=== PATIENT | female | born 1955 | race African-American/Black ===

== ENCOUNTER 2021-12-01 15:08 | Emergency (ER) | payer OTHER, BC ==
[2021-12-01 15:22] VITALS: TEMP 98.9; BMI 26.6
[2021-12-01] MEDS ORDERED: DEXAMETHASONE SOD PHOSPHATE 10 MG/1 ML VIAL IM ONE (16:19)
[2021-12-01] MEDS: ALBUTEROL SO4 2.5/IPRATROPIUM 0.5 INH SOL 3 ML VIAL.NEB. NEB SCH ×3 (17:07→17:16)
[2021-12-01 17:57] VITALS: BP 126/81; PULSE 73
== END 2021-12-01 19:22 | disposition home or self-care (01) ==
LOC: JER 15:08
PROC: 3E023GC Introduction of Other Therapeutic Substance into Muscle, Percutaneous Approach (ICD-10-PCS; principal; 2021-12-01)
PROC: 3E0F7GC Introduction of Other Therapeutic Substance into Respiratory Tract, Via Natural or Artificial Opening (ICD-10-PCS; 2021-12-01)
DX: J45.909 Unspecified asthma, uncomplicated (principal)
CPT/HCPCS: 71046-TC-FY; 99285-25; J1100

== ENCOUNTER 2022-04-19 12:35 | Emergency (ER) | payer OTHER, BC ==
[2022-04-19 13:16] VITALS: BP 145/88; PULSE 62; RESP 18; TEMP 98; BMI 26.6
== END 2022-04-19 15:15 | disposition left against medical advice (07) ==
LOC: JERFT 12:35
DX: N76.89 Other specified inflammation of vagina and vulva (principal)
CPT/HCPCS: 99281-25

== ENCOUNTER 2024-08-17 10:45 | Emergency (ER) | payer BC, OTHER ==
[2024-08-17 11:02] VITALS: TEMP 97.6; BMI 26.6
[2024-08-17 12:20] LABS: BASO % 0.6 % (0-2.0); EOS % 3.7 % (0-4.5); HEMATOCRIT 46.1 % (32.4-45.2); HEMOGLOBIN 15.4 GM/dL (10.7-15.3); MCH 33.5 pg (25.7-33.7); MCHC 33.5 g/dl (32.0-36.0); MEAN PLT VOLUME 6.1 fl (7.5-11.1); MONO % 8.2 % (3.8-10.2); NEUT % 52.5 % (42.8-82.8); PLATELET COUNT 221 10^3/uL (134-434); RBC 4.61 M/mm3 (3.60-5.2); RDW 13.7 % (11.6-15.6); WHITE BLOOD COUNT 4.5 K/mm3 (4.0-10.0)
[2024-08-17 12:27] LABS: INR 0.9 (0.83-1.09); PROTHROMBIN TIME (PATIENT) 10.2 SEC (9.7-13.0)
[2024-08-17 12:30] LABS: ACTIVATED PTT 30.4 SECONDS (25.2-36.5)
[2024-08-17 12:38] LABS: POTASSIUM 4.5 mmol/L (3.5-5.1)
[2024-08-17] MEDS ORDERED: ACETAMINOPHEN INJECTION 100 ML ONE (12:38)
[2024-08-17 12:40] LABS: CALCIUM 9.6 mg/dL (8.5-10.1)
[2024-08-17 12:41] LABS: ALBUMIN 3.8 g/dl (3.4-5.0); BLOOD UREA NITROGEN 21.9 mg/dL (7-18); MAGNESIUM 2.4 mg/dL (1.8-2.4)
[2024-08-17 12:44] LABS: CREATININE 1.7 mg/dL (0.55-1.3)
[2024-08-17 12:45] LABS: BILIRUBIN,TOTAL 0.2 mg/dL (0.2-1)
[2024-08-17] MEDS: ACETAMINOPHEN 1000 MG/100 ML BAG IVPB ONE (12:45)
[2024-08-17 12:49] LABS: N-TERMINAL BNP 107.6 pg/ml (5-125)
[2024-08-17 13:39] LABS: HIV INTERPRETATION NEGATIVE (NEGATIVE)
[2024-08-17] MEDS ORDERED: ASPIRIN 81 MG CHEWABLE TABLETS ONE (15:10)
[2024-08-17] MEDS: ASPIRIN 81 MG CHEWABLE TABLETS PO ONE (15:15)
[2024-08-17 16:29] VITALS: BP 149/78; PULSE 60; RESP 16
== END 2024-08-17 16:29 | disposition home or self-care (01) ==
LOC: JER 10:45
PROC: 3E033NZ Introduction of Analgesics, Hypnotics, Sedatives into Peripheral Vein, Percutaneous Approach (ICD-10-PCS; principal; 2024-08-17)
DX: M25.511 Pain in right shoulder (principal); Z20.822 Contact with and (suspected) exposure to COVID-19
CPT/HCPCS: 0241U-QW; 36415; 71045-TC-FY; 80053; 83735; 83880; 84484; 85025; 85610; 85730; 86803; 87389; 87522; 93005; 93010; 99285-25; J0131

== ENCOUNTER 2024-10-04 16:48 | Observation (INO) | payer OTHER ==
[2024-10-04 17:05] VITALS: BMI 27.4
[2024-10-04] MEDS ORDERED: ALBUTEROL SO4 2.5/IPRATROPIUM 0.5 INH SOL 3 ML VIAL.NEB. NEB PRN (17:44)
[2024-10-04 17:52] LABS: HEMATOCRIT 41.2 % (32.4-45.2); MCH 33.9 pg (25.7-33.7); MCHC 34.1 g/dl (32.0-36.0); MEAN CELL VOLUME 99.5 fl (80-96); MEAN PLT VOLUME 6.8 fl (7.5-11.1); PLATELET COUNT 170 10^3/uL (134-434); RBC 4.14 M/mm3 (3.60-5.2); RDW 14.2 % (11.6-15.6); WHITE BLOOD COUNT 6.4 K/mm3 (4.0-10.0)
[2024-10-04 18:18] LABS: POTASSIUM 5.5 mmol/L (3.5-5.1)
[2024-10-04 18:20] LABS: CALCIUM 9.1 mg/dL (8.5-10.1)
[2024-10-04 18:21] LABS: ALBUMIN 3.6 g/dl (3.4-5.0); BLOOD UREA NITROGEN 28.4 mg/dL (7-18)
[2024-10-04 18:24] LABS: CREATININE 1.8 mg/dL (0.55-1.3)
[2024-10-04 18:25] LABS: BILIRUBIN,TOTAL 0.6 mg/dL (0.2-1)
[2024-10-04 19:20] LABS: POTASSIUM 4.9 mmol/L (3.5-5.1)
[2024-10-04 19:25] LABS: CREATININE 1.7 mg/dL (0.55-1.3)
[2024-10-04] MEDS ORDERED: ALBUTEROL SO4 2.5/IPRATROPIUM 0.5 INH SOL 3 ML VIAL.NEB. NEB ONE (19:55)
[2024-10-04] MEDS: ALBUTEROL SO4 2.5/IPRATROPIUM 0.5 INH SOL 3 ML VIAL.NEB. NEB ONE ×2 (19:57)
[2024-10-05] MEDS: methylPREDNISolone NA SUCC 40 MG/1 ML VIAL IVPUSH SCH ×3 (00:40→16:26)
[2024-10-05] MEDS: OSELTAMIVIR PHOSPHATE 30 MG CAPSULE PO SCH (00:40)
[2024-10-05] MEDS ORDERED: CycloBENZAprine HCL 5 MG TABLET PO PRN ×2 (03:05→16:14)
[2024-10-05] MEDS: HEPARIN NA (PORCINE) 5,000 UNITS/ML 1ML VIAL SQ SCH (05:28)
[2024-10-05] MEDS: INSULIN ASPART SLIDING SCALE (NOVOLOG) 1 VIAL SQ SCH (06:00)
[2024-10-05] MEDS: INSULIN (LEVEMIR) 100 UNITS/ML UNITS SQ SCH (06:00)
[2024-10-05] MEDS ORDERED: PATIENT'S OWN MEDICATION (NON-FORMULARY) (Gabapentin [Gabapentin] 600 MG Tablet) PO SCH (06:00)
[2024-10-05] MEDS: PANTOPRAZOLE 40 MG TABLET PO SCH (06:01)
[2024-10-05] MEDS: ALBUTEROL SO4 2.5/IPRATROPIUM 0.5 INH SOL 3 ML VIAL.NEB. NEB SCH (07:20)
[2024-10-05] MEDS: LOSARTAN POTASSIUM 50 MG TABLET PO SCH (09:35)
[2024-10-05] MEDS: ASPIRIN COATED 81 MG TABLET.EC PO SCH (09:36)
[2024-10-05] MEDS: DULoxetine HCL 30 MG CAPSULE.DR PO SCH (09:36)
[2024-10-05] MEDS: ISOSORBIDE MONONITRATE 60 MG TAB.SR.24H (FP) PO SCH (09:36)
[2024-10-05] MEDS: amLODIPine BESYLATE 10 MG TABLET (FP) PO SCH (09:36)
[2024-10-05] MEDS: EZETIMIBE 10 MG TABLET (FP) PO SCH (09:36)
[2024-10-05] MEDS: CLOPIDOGREL BISULFATE 75 MG TABLET (FP) PO SCH (09:36)
[2024-10-05 09:39] LABS: HEMATOCRIT 42.6 % (32.4-45.2); HEMOGLOBIN 14.5 GM/dL (10.7-15.3); MCH 33.6 pg (25.7-33.7); MCHC 34.1 g/dl (32.0-36.0); MEAN CELL VOLUME 98.3 fl (80-96); MEAN PLT VOLUME 6.8 fl (7.5-11.1); PLATELET COUNT 185 10^3/uL (134-434); RBC 4.33 M/mm3 (3.60-5.2); RDW 14.6 % (11.6-15.6); WHITE BLOOD COUNT 5.7 K/mm3 (4.0-10.0)
[2024-10-05 09:58] LABS: POTASSIUM 4.2 mmol/L (3.5-5.1)
[2024-10-05 10:04] LABS: ALBUMIN 3.7 g/dl (3.4-5.0); BLOOD UREA NITROGEN 25.4 mg/dL (7-18); CALCIUM 9.9 mg/dL (8.5-10.1)
[2024-10-05 10:07] LABS: CREATININE 1.3 mg/dL (0.55-1.3)
[2024-10-05 10:09] LABS: BILIRUBIN,TOTAL 0.5 mg/dL (0.2-1)
[2024-10-05] MEDS ORDERED: ACETAMINOPHEN 325 MG TABLET (FP) PO PRN (17:10)
[2024-10-05] MEDS: ACETAMINOPHEN 325 MG TABLET (FP) PO ONE (17:23)
[2024-10-05] MEDS ORDERED: ALBUTEROL SO4 0.083% IH SOL 2.5 MG/3 ML VIAL.NEB. NEB PRN (19:31)
[2024-10-05] MEDS: ROSUVASTATIN CA 20 MG TABLET PO SCH (22:09)
[2024-10-05] MEDS: BUDESONIDE/FORMETEROL FUMARATE 80/4.5 mcg INHALER IH SCH (22:12)
[2024-10-05] MEDS: GABAPENTIN 300 MG CAPSULE PO PRN (22:22)
[2024-10-06 08:10] VITALS: RESP 18
[2024-10-06 09:02] LABS: HEMATOCRIT 43.9 % (32.4-45.2); HEMOGLOBIN 14.7 GM/dL (10.7-15.3); MCH 33.3 pg (25.7-33.7); MCHC 33.6 g/dl (32.0-36.0); MEAN CELL VOLUME 99.1 fl (80-96); MEAN PLT VOLUME 6.6 fl (7.5-11.1); PLATELET COUNT 201 10^3/uL (134-434); RBC 4.42 M/mm3 (3.60-5.2); RDW 14.3 % (11.6-15.6); WHITE BLOOD COUNT 8.7 K/mm3 (4.0-10.0)
[2024-10-06 09:21] LABS: POTASSIUM 4.1 mmol/L (3.5-5.1)
[2024-10-06 09:23] LABS: CALCIUM 9.7 mg/dL (8.5-10.1)
[2024-10-06 09:26] VITALS: BP 142/83; PULSE 80; TEMP 98.4
[2024-10-06 09:26] LABS: CREATININE 1.4 mg/dL (0.55-1.3)
[2024-10-06] MEDS: ACETAMINOPHEN 325 MG TABLET (FP) PO PRN (09:30)
[2024-10-06] MEDS: NICOTINE 7 MG/24 HOURS TOPICAL PATCH TD SCH (09:30)
[2024-10-06] MEDS: EMPAGLIFLOZIN (JARDIANCE) 10 MG TABLET PO SCH (09:30)
[2024-10-06] MEDS: oxyCODONE HCL 5 MG TABLET PO PRN (09:31)
[2024-10-06] MEDS ORDERED: methylPREDNISolone NA SUCC 40 MG/1 ML VIAL IVPUSH SCH (22:00)
== END 2024-10-06 15:09 | disposition home or self-care (01) ==
LOC: JER 16:48 → INTOOBSV 20:37 → UNDOADMOB 20:37 → JERBED 20:37 → UNDOADMIN 20:41 → JERBED 23:10 → J5S 23:10
PROVIDERS: ADMIT Internal Medicine
PROC: 3E0F7GC Introduction of Other Therapeutic Substance into Respiratory Tract, Via Natural or Artificial Opening (ICD-10-PCS; principal; 2024-10-05)
PROC: 3E023GC Introduction of Other Therapeutic Substance into Muscle, Percutaneous Approach (ICD-10-PCS; 2024-10-05)
PROC: 3E013VG Introduction of Insulin into Subcutaneous Tissue, Percutaneous Approach (ICD-10-PCS; 2024-10-05)
PROC: 3E033GC Introduction of Other Therapeutic Substance into Peripheral Vein, Percutaneous Approach (ICD-10-PCS; 2024-10-05)
DX: J09.X2 Influenza due to identified novel influenza A virus with other respiratory manifestations (principal); E11.22 Type 2 diabetes mellitus with diabetic chronic kidney disease; I12.9 Hypertensive chronic kidney disease with stage 1 through stage 4 chronic kidney disease, or unspecified chronic kidney disease; N18.9 Chronic kidney disease, unspecified; J45.901 Unspecified asthma with (acute) exacerbation; J96.01 Acute respiratory failure with hypoxia; F17.210 Nicotine dependence, cigarettes, uncomplicated; E78.5 Hyperlipidemia, unspecified
CPT/HCPCS: 0241U-QW; 36415; 71046-TC-FY; 80048; 80053; 82962; 83036; 84484; 85027; 93005; 93010; 94640; 94761; 96372; 96374; 96376; 97116-GP; 97161-GP; 99285-25; G0378; J1644

== ENCOUNTER 2024-10-20 11:57 | Observation (INO) | payer OTHER ==
[2024-10-20] MEDS: ASPIRIN 81 MG CHEWABLE TABLETS PO ONE (13:03)
[2024-10-20] MEDS ORDERED: ASPIRIN 81 MG CHEWABLE TABLETS ONE (13:03)
[2024-10-20 13:11] LABS: BASO % 0.5 % (0-2.0); HEMATOCRIT 42.4 % (32.4-45.2); HEMOGLOBIN 14.1 GM/dL (10.7-15.3); MCH 33.1 pg (25.7-33.7); MCHC 33.3 g/dl (32.0-36.0); MEAN CELL VOLUME 99.3 fl (80-96); MEAN PLT VOLUME 6.3 fl (7.5-11.1); MONO % 6.9 % (3.8-10.2); NEUT % 71.6 % (42.8-82.8); PLATELET COUNT 157 10^3/uL (134-434); RBC 4.27 M/mm3 (3.60-5.2); RDW 14.5 % (11.6-15.6); WHITE BLOOD COUNT 6.4 K/mm3 (4.0-10.0)
[2024-10-20 13:35] LABS: CHLORIDE 105 mmol/L (98-107); SODIUM 138 mmol/L (136-145)
[2024-10-20 13:37] LABS: CALCIUM 8.6 mg/dL (8.5-10.1)
[2024-10-20 13:38] LABS: ALBUMIN 3.1 g/dl (3.4-5.0); BLOOD UREA NITROGEN 31.5 mg/dL (7-18); CO2 31 mmol/L (21-32); GLUCOSE,RANDOM 172 mg/dL (74-106); MAGNESIUM 2.3 mg/dL (1.8-2.4)
[2024-10-20 13:41] LABS: BILIRUBIN,TOTAL 0.8 mg/dL (0.2-1); CREATININE 1.6 mg/dL (0.55-1.3); SGOT/AST 58 U/L (15-37); SGPT/ALT 57 U/L (13-61)
[2024-10-20 13:43] LABS: ALK PHOS 74 U/L (45-117); TOT PROT 6.3 g/dl (6.4-8.2)
[2024-10-20 13:48] LABS: ANION GAP 1 mmol/L (4-13); POTASSIUM 7.8 mmol/L (3.5-5.1)
[2024-10-20 13:57] LABS: N-TERMINAL BNP 937.8 pg/ml (5-125)
[2024-10-20] MEDS: ALBUTEROL SO4 2.5/IPRATROPIUM 0.5 INH SOL 3 ML VIAL.NEB. NEB SCH (14:00)
[2024-10-20] MEDS ORDERED: ALBUTEROL SO4 2.5/IPRATROPIUM 0.5 INH SOL 3 ML VIAL.NEB. NEB ONE (14:03)
[2024-10-20 14:16] LABS: INR 0.91 (0.83-1.09); PROTHROMBIN TIME (PATIENT) 9.9 SEC (9.7-13.0)
[2024-10-20 14:19] LABS: ACTIVATED PTT 22.3 SECONDS (25.2-36.5)
[2024-10-20 14:38] LABS: POTASSIUM 4.7 mmol/L (3.5-5.1)
[2024-10-20 14:41] LABS: CALCIUM 8.5 mg/dL (8.5-10.1)
[2024-10-20 14:42] LABS: ALBUMIN 2.8 g/dl (3.4-5.0); BLOOD UREA NITROGEN 31.4 mg/dL (7-18)
[2024-10-20 14:45] LABS: CREATININE 1.5 mg/dL (0.55-1.3)
[2024-10-20 14:46] LABS: BILIRUBIN,TOTAL 0.6 mg/dL (0.2-1); TOT PROT 5.4 g/dl (6.4-8.2)
[2024-10-20] MEDS ORDERED: ALBUTEROL SO4 HFA INHALER IH PRN (20:39)
[2024-10-20] MEDS ORDERED: CycloBENZAprine HCL 5 MG TABLET PO PRN (20:39)
[2024-10-20] MEDS ORDERED: GABAPENTIN 300 MG CAPSULE ONE (21:57)
[2024-10-20] MEDS ORDERED: HEPARIN NA (PORCINE) 5,000 UNITS/ML 1ML VIAL ONE (21:57)
[2024-10-20] MEDS: GABAPENTIN 300 MG CAPSULE PO SCH (22:01)
[2024-10-20] MEDS: HEPARIN NA (PORCINE) 5,000 UNITS/ML 1ML VIAL SQ SCH (22:01)
[2024-10-21] MEDS: oxyCODONE HCL 5 MG TABLET PO PRN (01:27)
[2024-10-21] MEDS: ACETAMINOPHEN 325 MG TABLET (FP) PO PRN (01:28)
[2024-10-21 02:15] VITALS: BMI 28.0
[2024-10-21] MEDS: INSULIN ASPART SLIDING SCALE (NOVOLOG) 1 VIAL SQ SCH (06:20)
[2024-10-21] MEDS ORDERED: ALBUTEROL SO4 2.5/IPRATROPIUM 0.5 INH SOL 3 ML VIAL.NEB. NEB PRN (06:50)
[2024-10-21] MEDS: FUROSEMIDE 40 MG/4 ML INJECTABLE VIAL IVPUSH ONE (07:59)
[2024-10-21] MEDS: methylPREDNISolone NA SUCC 40 MG/1 ML VIAL IVPUSH SCH (08:02)
[2024-10-21] MEDS: ALBUTEROL SO4 2.5/IPRATROPIUM 0.5 INH SOL 3 ML VIAL.NEB. NEB SCH (08:10)
[2024-10-21 09:26] LABS: HEMATOCRIT 38.6 % (32.4-45.2); HEMOGLOBIN 12.8 GM/dL (10.7-15.3); MCH 33.1 pg (25.7-33.7); MCHC 33.1 g/dl (32.0-36.0); MEAN CELL VOLUME 100.1 fl (80-96); MEAN PLT VOLUME 6.7 fl (7.5-11.1); PLATELET COUNT 142 10^3/uL (134-434); RBC 3.85 M/mm3 (3.60-5.2); WHITE BLOOD COUNT 4.9 K/mm3 (4.0-10.0)
[2024-10-21 09:36] LABS: POTASSIUM 4.3 mmol/L (3.5-5.1)
[2024-10-21 09:48] LABS: ALBUMIN 2.7 g/dl (3.4-5.0); BLOOD UREA NITROGEN 27.4 mg/dL (7-18); CALCIUM 8.2 mg/dL (8.5-10.1); TOT PROT 5.2 g/dl (6.4-8.2)
[2024-10-21 09:50] LABS: BILIRUBIN,TOTAL 0.5 mg/dL (0.2-1)
[2024-10-21 09:52] LABS: CREATININE 1.5 mg/dL (0.55-1.3)
[2024-10-21] MEDS: amLODIPine BESYLATE 10 MG TABLET (FP) PO SCH (10:42)
[2024-10-21] MEDS: CLOPIDOGREL BISULFATE 75 MG TABLET (FP) PO SCH (10:42)
[2024-10-21] MEDS: DULoxetine HCL 30 MG CAPSULE.DR PO SCH (10:42)
[2024-10-21] MEDS: PANTOPRAZOLE 40 MG TABLET PO SCH (10:42)
[2024-10-21] MEDS: EZETIMIBE 10 MG TABLET (FP) PO SCH (10:42)
[2024-10-21] MEDS: ASPIRIN COATED 81 MG TABLET.EC PO SCH (10:42)
[2024-10-21] MEDS: ROSUVASTATIN CA 20 MG TABLET PO SCH (10:42)
[2024-10-21] MEDS: VALSARTAN 160 MG TABLET PO SCH (10:42)
[2024-10-21] MEDS: FUROSEMIDE 40 MG/4 ML INJECTABLE VIAL IVPUSH SCH (13:39)
[2024-10-21] MEDS: NICOTINE 14 MG/24 HOURS TOPICAL PATCH TD SCH (13:40)
[2024-10-22 08:05] LABS: HEMATOCRIT 41.1 % (32.4-45.2); HEMOGLOBIN 13.7 GM/dL (10.7-15.3); MCH 33.3 pg (25.7-33.7); MCHC 33.4 g/dl (32.0-36.0); MEAN CELL VOLUME 99.7 fl (80-96); MEAN PLT VOLUME 6.8 fl (7.5-11.1); PLATELET COUNT 164 10^3/uL (134-434); RBC 4.12 M/mm3 (3.60-5.2); WHITE BLOOD COUNT 10.7 K/mm3 (4.0-10.0)
[2024-10-22 08:25] LABS: POTASSIUM 4.9 mmol/L (3.5-5.1)
[2024-10-22 08:28] LABS: ALBUMIN 2.9 g/dl (3.4-5.0); BLOOD UREA NITROGEN 29.9 mg/dL (7-18); MAGNESIUM 2.2 mg/dL (1.8-2.4)
[2024-10-22 08:31] LABS: CREATININE 1.6 mg/dL (0.55-1.3)
[2024-10-22 08:34] LABS: BILIRUBIN,TOTAL 0.5 mg/dL (0.2-1)
[2024-10-22 10:27] VITALS: RESP 18
[2024-10-22 10:35] LABS: ANISOCYTOSIS 0; MACROCYTOSIS 0
[2024-10-22 16:12] VITALS: BP 146/77; PULSE 92; TEMP 98
[2024-10-23] MEDS ORDERED: FUROSEMIDE 40 MG TABLET (FP) PO SCH (10:00)
[2024-10-23] MEDS ORDERED: predniSONE 20 MG TABLET (UD) PO SCH (10:00)
== END 2024-10-22 16:44 | disposition home or self-care (01) ==
LOC: JER 11:57 → JERBED 20:07 → J4S 10-21 00:25
PROVIDERS: ADMIT Internal Medicine; ATTEND Nurse Practitioner Acute Care
PROC: 3E0F7GC Introduction of Other Therapeutic Substance into Respiratory Tract, Via Natural or Artificial Opening (ICD-10-PCS; principal; 2024-10-20)
PROC: 3E033GC Introduction of Other Therapeutic Substance into Peripheral Vein, Percutaneous Approach (ICD-10-PCS; 2024-10-20)
PROC: 3E023GC Introduction of Other Therapeutic Substance into Muscle, Percutaneous Approach (ICD-10-PCS; 2024-10-20)
DX: J44.1 Chronic obstructive pulmonary disease with (acute) exacerbation (principal); R07.89 Other chest pain; R60.0 Localized edema; Z95.0 Presence of cardiac pacemaker; I11.9 Hypertensive heart disease without heart failure; E78.5 Hyperlipidemia, unspecified; E11.9 Type 2 diabetes mellitus without complications; G89.29 Other chronic pain; M54.50 Low back pain, unspecified; Z72.0 Tobacco use
CPT/HCPCS: 36415; 71045-TC-FY; 80053; 82550; 82553; 82962; 83036; 83735; 83880; 84484; 85025; 85027; 85610; 85730; 93005; 93010; 93306-TC; 94640; 96372; 96374; 96376; 99285-25; G0378; J1644

== ENCOUNTER 2024-11-07 10:25 | Inpatient (IN) | payer OTHER ==
[2024-11-07 11:41] LABS: ABSOLUTE IMMATURE GRANULOCYTES 0.11 x10^3/uL (0.0-0.031); BASOPHILS # 0.03 x10^3/uL (0.01-0.08); EOSINOPHIL % 0.3 % (0.7-5.8); EOSINOPHILS # 0.02 x10^3/uL (0.04-0.36); HEMATOCRIT 41.2 % (34.1-44.9); HEMOGLOBIN 13.2 g/dL (11.2-15.7); MEAN CELL VOLUME 100.7 fl (79.4-94.8); MEAN PLT VOLUME 8.9 fl (9.4-12.3); MONOCYTE # 0.44 x10^3/uL (0.24-0.86); MONOCYTE % 6.8 % (4.7-12.5); PLATELET COUNT # 195 x10^3/uL (182-369); RDW 13.1 % (12.4-16.4)
[2024-11-07 11:47] LABS: EPI CELLS >36 /uL (0-25.1); HYALINE CASTS 1 /uL (0-3.1); PH,URINE 5.5 (5.0-8.0); URINE APPEARANCE CLEAR; URINE BACTERIA 397 /uL (0-1359); URINE BILIRUBIN NEGATIVE (NEGATIVE); URINE COLOR YELLOW; URINE GLUCOSE (UA) 3+ (NEGATIVE); URINE KETONE NEGATIVE (NEGATIVE); URINE LEUK ESTERASE NEGATIVE (NEGATIVE); URINE NITRITE NEGATIVE (NEGATIVE); URINE PROTEIN 2+ (NEGATIVE); URINE RBC 15 /uL (0-23.9); URINE UROBILINOGEN 0.2 mg/dL (0.2-1.0); URINE WBC 27 /uL (0-25.8)
[2024-11-07 11:59] LABS: INR 1.01 (0.83-1.09)
[2024-11-07 12:06] LABS: CHLORIDE 100 mmol/L (98-107); POTASSIUM 5.1 mmol/L (3.5-5.1); SODIUM 134 mmol/L (136-145)
[2024-11-07 12:09] LABS: ALBUMIN 2.9 g/dl (3.4-5.0); ANION GAP 7 mmol/L (4-13); CALCIUM 8.8 mg/dL (8.5-10.1); CO2 28 mmol/L (21-32)
[2024-11-07 12:10] LABS: BLOOD UREA NITROGEN 24.3 mg/dL (7-18)
[2024-11-07 12:12] LABS: SGOT/AST 19 U/L (15-37); SGPT/ALT 32 U/L (13-61)
[2024-11-07 12:13] LABS: CREATININE 2.3 mg/dL (0.55-1.3)
[2024-11-07 12:14] LABS: BILIRUBIN,TOTAL 0.3 mg/dL (0.2-1)
[2024-11-07 12:15] LABS: ALK PHOS 89 U/L (45-117)
[2024-11-07 12:16] LABS: GLUCOSE,RANDOM 528 mg/dL (74-106)
[2024-11-07] MEDS: SODIUM CHLORIDE 0.9% 500 ML INFUS.BAG IV ONE (13:45)
[2024-11-07] MEDS ORDERED: INSULIN REGULAR HUMAN 100 UNITS/ML *VIAL ONE (14:43)
[2024-11-07] MEDS: INSULIN REGULAR HUMAN 100 UNITS/ML *VIAL IVPUSH ONE (14:50)
[2024-11-07] MEDS ORDERED: INSULIN ASPART SLIDING SCALE (NOVOLOG) 1 VIAL SQ SCH (16:30)
[2024-11-07] MEDS ORDERED: AZITHROMYCIN 250 MG TABLET PO SCH (17:15)
[2024-11-07] MEDS: SODIUM CHLORIDE 1,000 ML IV SCH (17:55)
[2024-11-07] MEDS: CEFTRIAXONE 1 G/50 ML PREMIX 50 ML IVPB SCH (18:03)
[2024-11-07] MEDS ORDERED: AZITHROMYCIN 500 MG TABLET ONE (18:09)
[2024-11-07] MEDS ORDERED: CEFTRIAXONE 1 G/50 ML PREMIX 50 ML IVPB ONE (18:09)
[2024-11-07] MEDS: AZITHROMYCIN 250 MG TABLET PO ONE (18:35)
[2024-11-07] MEDS: INSULIN ASPART SLIDING SCALE (NOVOLOG) 1 VIAL SQ SCH (18:46)
[2024-11-07] MEDS ORDERED: ATORVASTATIN CA 40 MG TABLET (FP) ONE (23:28)
[2024-11-07] MEDS: INSULIN GLARGINE (LANTUS) 100 UNITS/ML UNITS SQ SCH (23:38)
[2024-11-07] MEDS: ATORVASTATIN CA 40 MG TABLET (FP) PO SCH (23:38)
[2024-11-08 04:12] VITALS: BMI 26.1
[2024-11-08] MEDS: amLODIPine BESYLATE 2.5 MG TABLET (FP) PO SCH (09:23)
[2024-11-08 11:43] LABS: HEMATOCRIT 37.8 % (34.1-44.9); HEMOGLOBIN 12.2 g/dL (11.2-15.7); MCHC 32.3 g/dl (32.2-35.5); MEAN PLT VOLUME 9.1 fl (9.4-12.3); PLATELET COUNT # 189 x10^3/uL (182-369)
[2024-11-08 12:00] LABS: POTASSIUM 4.5 mmol/L (3.5-5.1)
[2024-11-08 12:01] LABS: BLOOD UREA NITROGEN 15.6 mg/dL (7-18); CALCIUM 8.5 mg/dL (8.5-10.1)
[2024-11-08 12:05] LABS: CREATININE 1.5 mg/dL (0.55-1.3)
[2024-11-08] MEDS: ACETAMINOPHEN 325 MG TABLET (FP) PO PRN (17:54)
[2024-11-08] MEDS ORDERED: MUPIROCIN 2% TOPICAL OINTMENT 22 GM TUBE TP SCH (22:00)
[2024-11-09] MEDS: MUPIROCIN 2% TOPICAL OINTMENT 22 GM TUBE TP SCH (01:04)
[2024-11-09 07:07] LABS: HEMATOCRIT 37.3 % (34.1-44.9); HEMOGLOBIN 12.5 g/dL (11.2-15.7); MCHC 33.5 g/dl (32.2-35.5); MEAN CELL VOLUME 98.4 fl (79.4-94.8); PLATELET COUNT # 199 x10^3/uL (182-369); RDW 12.6 % (12.4-16.4)
[2024-11-09 07:22] LABS: POTASSIUM 4.3 mmol/L (3.5-5.1)
[2024-11-09 07:37] LABS: ALBUMIN 2.5 g/dl (3.4-5.0); CALCIUM 8.8 mg/dL (8.5-10.1)
[2024-11-09 07:40] LABS: CREATININE 1.2 mg/dL (0.55-1.3)
[2024-11-09 07:41] LABS: BILIRUBIN,TOTAL 0.6 mg/dL (0.2-1); TOT PROT 5.5 g/dl (6.4-8.2)
[2024-11-09 08:53] VITALS: BP 152/88; PULSE 85; RESP 18; TEMP 98.4
[2024-11-09] MEDS: INSULIN ASPART SLIDING SCALE (NOVOLOG) 1 VIAL SQ SCH (09:02)
[2024-11-09] MEDS: CLOPIDOGREL BISULFATE 75 MG TABLET (FP) PO SCH (09:05)
== END 2024-11-09 13:52 | disposition home or self-care (01) | DRG 155 ==
LOC: JER 10:25 → JERBED 15:48 → OBSVTOIN 16:54 → J4W 11-08 01:10
PROVIDERS: ADMIT Internal Medicine; ATTEND Internal Medicine
PROC: 09JK8ZZ Inspection of Nasal Mucosa and Soft Tissue, Via Natural or Artificial Opening Endoscopic (ICD-10-PCS; principal; 2024-11-08)
DX: S02.2XXA Fracture of nasal bones, initial encounter for closed fracture (principal); I13.0 Hypertensive heart and chronic kidney disease with heart failure and stage 1 through stage 4 chronic kidney disease, or unspecified chronic kidney disease; N17.9 Acute kidney failure, unspecified; S01.21XA Laceration without foreign body of nose, initial encounter; E78.5 Hyperlipidemia, unspecified; J44.9 Chronic obstructive pulmonary disease, unspecified; J34.2 Deviated nasal septum; I25.10 Atherosclerotic heart disease of native coronary artery without angina pectoris; E11.22 Type 2 diabetes mellitus with diabetic chronic kidney disease; N18.9 Chronic kidney disease, unspecified; I50.9 Heart failure, unspecified; R04.0 Epistaxis; E11.65 Type 2 diabetes mellitus with hyperglycemia; M54.16 Radiculopathy, lumbar region; F12.90 Cannabis use, unspecified, uncomplicated; I49.9 Cardiac arrhythmia, unspecified; W18.30XA Fall on same level, unspecified, initial encounter; Y93.9 Activity, unspecified; Y92.091 Bathroom in other non-institutional residence as the place of occurrence of the external cause; Y99.9 Unspecified external cause status; Z95.0 Presence of cardiac pacemaker
CPT/HCPCS: 0241U-QW; 36415; 70450-TC; 70486-TC; 71045-TC-FY; 72125-TC; 76775-TC; 80048; 80053; 80061; 81003; 82550; 82553; 82607; 82746; 82962; 83036; 83880; 83930; 84436; 84439; 84443; 84460; 84479; 84481; 84484; 85025; 85027; 85379; 85610; 85730; 86850; 86900; 86901; 93005; 93010; 97116-GP; 97161-GP; 99285-25; G0378